=== PATIENT | male | born 1965 | race African-American/Black ===

== ENCOUNTER 2019-02-06 19:03 | Emergency (ER) | payer OTHER, SELFPAY ==
--- OUTSIDE RECORDS SUMMARY | 2019-02-06 19:05 | XMS REPORT ---
:1965 [facility] [address] [place] [address] Care Team Providers Name Role Phone MENG JORGENSEN Unavailable Unavailable CHANDNI JIMENEZ Unavailable Unavailable Payers Payer Name Policy Type Policy Number Effective Date Expiration Date Problems This patient has no known problems. Allergies, Adverse Reactions, Alerts Allergy Allergy Status Severity Reaction(s) Onset Inactive Treating Comments Name Type Date Date Clinician No Known DA Active U 2018-05 Allergies 00:00:0 0 Medications This patient has no known medications. Results Test Description Test Time Test Comments Text Results Atomic Results Result Comments URINALYSIS COMPLETE 2018-12-29 14:34:00 Test Item Value Reference Range Comments UA COLOR (test code=COLU) Dark-Yellow YELLOW UA APPEARANCE (test code=APPU) CLEAR CLEAR UA GLUCOSE DIPSTICK (test code=DGLUU) NEGATIVE mg/dL NEGATIVE UA BILIRUBIN DIPSTICK (test code=BILU) 1.0 (1+) mg/dL NEGATIVE UA KETONE DIPSTICK (test code=KETU) NEGATIVE mg/dL NEGATIVE UA SPECIFIC GRAVITY (test code=SGU) 1.032 1.001-1.035 UA BLOOD DIPSTICK (test code=KARTHIK) 0.03 mg/dL (Trace) mg/dL NEGATIVE UA PH DIPSTICK (test code=TAMIKO) 6.0 5.0-8.0 UA PROTEIN DIPSTICK (test code=PROU) 50 (1+) mg/dL NEGATIVE UA UROBILINIOGEN DIPSTICK (test code=URO) >12.0 (4+) mg/dL NEGATIVE UA NITRITE DIPSTICK (test code=JOHANNA) NEGATIVE NEGATIVE UA LEUKOCYTE ESTERASE W REFLEX (test NEGATIVE Shabana/uL NEGATIVE code=LEUUR) UA WBC (test code=WBCU) 0-5 per HPF 0-5 UA RBC (test code=RBCU) 0-2 #/HPF 0-5 UA EPITHELIAL CELLS (test code=EPIU) FEW per HPF FEW UA BACTERIA (test code=BACU) FEW #/HPF NONE UA MUCUS (test code=MUCU) FEW #/LPF FEW Urine Source? Clean CatchURINALYSIS [id number] 14:30:00 Test Item Value Reference Range Comments UA COLOR (test code=COLU) Dark-Yellow YELLOW UA APPEARANCE (test code=APPU) CLEAR CLEAR UA GLUCOSE DIPSTICK (test NEGATIVE mg/dL NEGATIVE code=DGLUU) UA BILIRUBIN DIPSTICK (test 1.0 (1+) mg/dL NEGATIVE code=BILU) UA KETONE DIPSTICK (test code=KETU) NEGATIVE mg/dL NEGATIVE UA SPECIFIC GRAVITY (test code=SGU) 1.032 1.001-1.035 UA BLOOD DIPSTICK (test code=KARTHIK) 0.03 mg/dL (Trace) mg/dL NEGATIVE UA PH DIPSTICK (test code=TAMIKO) 6.0 5.0-8.0 UA PROTEIN DIPSTICK (test 50 (1+) mg/dL NEGATIVE code=PROU) UA UROBILINIOGEN DIPSTICK (test >12.0 (4+) mg/dL NEGATIVE code=URO) UA NITRITE DIPSTICK (test NEGATIVE NEGATIVE code=JOHANNA) UA LEUKOCYTE ESTERASE W REFLEX NEGATIVE Shabana/uL NEGATIVE (test code=LEUUR) UA WBC (test code=WBCU) per HPF 0-5 UA RBC (test code=RBCU) per HPF 0-5 UA EPITHELIAL CELLS (test per HPF Few code=EPIU) UA BACTERIA (test code=BACU) per HPF NONE Urine Source? Clean CatchLACTIC [id number] 13:18:00 Test Item Value Reference Range Comments LACTIC ACID (test code=LACT) 1.6 mmol/L 0.4-1.9 HEPATIC FUNCTION [id number] 13:18:00 Test Item Value Reference Range Comments TOTAL PROTEIN (test code=PROT) 7.8 gram/dL 6.4-8.2 ALBUMIN (test code=ALB) 2.3 g/dL 3.4-5.0 GLOBULIN (test code=GLOB) 5.5 gram/dL 2.7-4.2 ALBUMIN/GLOBULIN RATIO (test 0.4 0.75-1.50 code=A/G) BILIRUBIN TOTAL (test 1.70 mg/dL 0.0-1.0 code=BILT) BILIRUBIN DIRECT (test 1.23 mg/dL 0.0-0.20 code=BILD) SGOT/AST (test code=AST) 147 IUnit/L 15-37 SGPT/ALT (test code=ALT) 23 IUnit/L 12-78 ALKALINE PHOSPHATASE TOTAL 204 IUnit/L 45-117 Note change in reference (test code=ALKP) range due to change in reagent. CREATINE KINASE (CK)2018-12-29 13:18:00 Test Item Value Reference Range Comments CREATINE KINASE (CK) (test code=CK) 123 IUnit/L 26-208 BASIC METABOLIC [id number] 13:18:00 Test Item Value Reference Range Comments SODIUM (test code=NA) 133 mmol/L 136-145 POTASSIUM (test code=K) 3.7 mmol/L 3.5-5.1 CHLORIDE (test code=CL) 100.0 mmol/L 98-107 CARBON DIOXIDE (test 28.0 mmol/L 21-32 code=CO2) ANION GAP (test code=GAP) 8.7 10-20 GLUCOSE (test code=GLU) 119 mg/dL 74-106 BLOOD UREA NITROGEN (test 10 mg/dL 7-18 code=BUN) GLOMERULAR FILTRATION RATE > 60 mL/min >=60 Estimated GFR by using (test code=GFR) Modified MDRD formula.Chronic kidney disease is defined as either kidney damageor GFR <60 mL/min/1.73 m2 for >3 months. CREATININE (test code=CREAT) 1.10 mg/dL 0.7-1.3 BUN/CREATININE RATIO (test 9.3 10-20 code=BUN/CREA) CALCIUM (test code=CA) 7.9 mg/dL 8.5-10.1 [id number] 13:18:00 Test Item Value Reference Range Comments TROPONIN-I (test code=TROPI) <0.015 ng/mL 0-0.045 BASIC METABOLIC [id number] 13:10:00 Test Item Value Reference Range Comments SODIUM (test code=NA) 133 mmol/L 136-145 POTASSIUM (test code=K) 3.7 mmol/L 3.5-5.1 CHLORIDE (test code=CL) 100.0 mmol/L 98-107 CARBON DIOXIDE (test code=CO2) mmol/L 21-32 ANION GAP (test code=GAP) 10-20 GLUCOSE (test code=GLU) mg/dL 74-106 BLOOD UREA NITROGEN (test code=BUN) mg/dL 7-18 GLOMERULAR FILTRATION RATE (test code=GFR) mL/min >=60 CREATININE (test code=CREAT) mg/dL 0.7-1.3 BUN/CREATININE RATIO (test code=BUN/CREA) 10-20 CALCIUM (test code=CA) 7.9 mg/dL 8.5-10.1 [id number] 13:10:00 Test Item Value Reference Range Comments TROPONIN-I (test code=TROPI) ng/mL 0-0.045 CBC W/O [id number] 13:10:00 Test Item Value Reference Range Comments WHITE BLOOD CELL (test code=WBC) 5.8 K/mm3 4.5-12.5 RED BLOOD CELL (test code=RBC) 2.65 mill/mm3 4.0-5.8 HEMOGLOBIN (test code=HGB) 10.1 gram/dL 13.0-17.5 HEMATOCRIT (test code=HCT) 28.9 % 42.0-52.0 MEAN CELL VOLUME (test code=MCV) 109.1 fL 80-98 MEAN CELL HGB (test code=MCH) 38.1 picogram 27.0-33.0 MEAN CELL HGB CONCETRATION (test code=MCHC) 34.9 gram/dL 33.0-36.0 RED CELL DISTRIBUTION WIDTH (test code=RDW) 13.8 % 11.6-16.2 PLATELET COUNT (test code=PLT) 206 K/mm3 150-450 MEAN PLATELET VOLUME (test code=MPV) 10.3 fL 6.7-11.0 CHEST 2 [id number] 15:40:00 [facility] [address] [address] Patient Name: LYRIC EVANS MR #: [id number] : 1965 Age/Sex: 52/M Req #: [id number] Adm Physician: Ordered by: MENG JORGENSEN MD Report #: [id number] Location: ER Room/Bed: Procedure: [id number] DX/CHEST 2 VIEWS Exam Date: Exam Time: 1507 REPORT STATUS: Signed EXAMINATION: CHEST 2 VIEWS INDICATION: Chest pain cp [id number] 1507 N COMPARISON: 06/12/2018 FINDINGS: TUBES and LINES: None. LUNGS: Lungs are well inflated. Lungs are clear. There is no evidence of pneumonia or pulmonary edema. PLEURA: No pleural effusion or pneumothorax. HEART AND MEDIASTINUM: The cardiomediastinal silhouette is unremarkable. BONES AND SOFT TISSUES: No acute osseous lesion. Soft tissues are unremarkable. UPPER ABDOMEN: No free air under the diaphragm. IMPRESSION: No acute thoracic abnormality. Signed by: Dr. Guy Alford M.D. on 07/10/2018 3:40 PM Dictated By: GUY ALFORD MD, MD 309 Transcribed By: AMY on 07/10/181539 COPY TO: MENG JORGENSEN [facility] W/O [id number] 14:23:00 Test Item Value Reference Range Comments WHITE BLOOD CELL (test code=WBC) 2.3 K/mm3 4.5-12.5 RED BLOOD CELL (test code=RBC) 2.92 mill/mm3 4.0-5.8 HEMOGLOBIN (test code=HGB) 10.8 gram/dL 13.0-17.5 HEMATOCRIT (test code=HCT) 31.0 % 42.0-52.0 MEAN CELL VOLUME (test code=MCV) 106.2 fL 80-98 MEAN CELL HGB (test code=MCH) 37.0 picogram 27.0-33.0 MEAN CELL HGB CONCETRATION (test code=MCHC) 34.8 gram/dL 33.0-36.0 RED CELL DISTRIBUTION WIDTH (test code=RDW) 13.2 % 11.6-16.2 PLATELET COUNT (test code=PLT) 62 K/mm3 150-450 MEAN PLATELET VOLUME (test code=MPV) 11.3 fL 6.7-11.0 WBC [id number] 14:23:00 Test Item Value Reference Range Comments STAIN ACCEPTABILITY (test code=STN STAIN ACCEPTABLE ACCEPTABLE) TOTAL CELLS COUNTED (test code=TCC) 100 #CELLS SEGMENTED NEUTROPHILS (test code=SEG) 51 % 39-69 LYMPHOCYTE (test code=LYMPH) 39 % 25-55 MONOCYTE (test code=MON) 8 % 0-10 EOSINOPHIL (test code=EOS) 1 % 0.0-5.0 BASOPHIL (test code=BASO) 1 % 0-1.0 MORPHOLOGY COMMENT (test code=MOC) NORMAL PLATELET ESTIMATE (test code=PLTEST) DECREASED PLATELET MORPHOLOGY (test code=PLTMORPH) NORMAL - CT HEAD/BRAIN W/O [id number] 14:02:00 Name: LYRIC EVANS [facility] : 1965 Age/S: 52 / M [address] [facility] Unit #: [id number] Loc: [place] [address] Phys: AUNDREA MAHONEY MD Acct: [id number] Dis Date: Status : REG ER PHONE #: [phone] Exam Date: 06/24/2018 1346 FAX #: [phone] Reason: headcahe, HIV EXAMS: CPTCODE: [id number] CT HEAD/BRAIN W/O CONT 80456 HISTORY: headache, HIV TECHNIQUE: Noncontrast 2.[address] of the head. Examination acquired within 24 hours of arrival. Automated exposure control for dose reduction; DLP: 755 mGy-cm. COMPARISON: None FINDINGS: No acute hemorrhage. No CT evidence of acute infarct. No intracranial mass or mass effect. No hydrocephalus. No extra-axial fluid collection. Atherosclerotic vascular calcification of the carotid siphons. Visualized paranasal sinuses are clear. Mastoid air cells and middle ear cavities are clear. Orbital contents are unremarkable. Calvarium and skull base are intact. IMPRESSION: No acute intracranial process. No mass or mass effect. Trace periventricular chronic microvascular ischemic changes. Atherosclerotic vasculardisease. Partially imaged 1.9 cm nodule within the right parapharyngeal fat, possible enlarged node. Correlate with contrast-enhanced neck CT. at 1402 Reported and signed by: Koki Neely D.O. CC: AUNDREA MAHONEY MD Technologist:Stephanie Miller RT (R),CT; CTDI: DLP: Trnscb Date/Time: 06/24/2018 (1402) [email or web address] Orig Print D/T: S: 06/24/2018 (3001) CTDI : DLP: PAGE 1 Signed ReportCBC W/O [id number] 13:39:00 Test Item Value Reference Range Comments WHITE BLOOD CELL (test code=WBC) 2.3 K/mm3 4.5-12.5 RED BLOOD CELL (test code=RBC) 2.92 mill/mm3 4.0-5.8 HEMOGLOBIN (test code=HGB) 10.8 gram/dL 13.0-17.5 HEMATOCRIT (test code=HCT) 31.0 % 42.0-52.0 MEAN CELL VOLUME (test code=MCV) 106.2 fL 80-98 MEAN CELL HGB (test code=MCH) 37.0 picogram 27.0-33.0 MEAN CELL HGB CONCETRATION (test code=MCHC) 34.8 gram/dL 33.0-36.0 RED CELL DISTRIBUTION WIDTH (test code=RDW) 13.2 % 11.6-16.2 PLATELET COUNT (test code=PLT) 62 K/mm3 150-450 MEAN PLATELET VOLUME (test code=MPV) 11.3 fL 6.7-11.0 WBC [id number] 13:39:00 Test Item Value Reference Range Comments STAIN ACCEPTABILITY (test code=STN ACCEPTABLE) TOTAL CELLS COUNTED (test code=TCC) #CELLS SEGMENTED NEUTROPHILS (test code=SEG) % 39-69 LYMPHOCYTE (test code=LYMPH) % 25-55 MONOCYTE (test code=MON) % 0-10 EOSINOPHIL (test code=EOS) % 0.0-5.0 CABOT RINGS (test code=CAB) MORPHOLOGY COMMENT (test code=MOC) PLATELET ESTIMATE (test code=PLTEST) PLATELET MORPHOLOGY (test code=PLTMORPH) CBC W/O [id number] 13:39:00 Test Item Value Reference Range Comments WHITE BLOOD CELL (test code=WBC) 2.3 K/mm3 4.5-12.5 RED BLOOD CELL (test code=RBC) 2.92 mill/mm3 4.0-5.8 HEMOGLOBIN (test code=HGB) 10.8 gram/dL 13.0-17.5 HEMATOCRIT (test code=HCT) 31.0 % 42.0-52.0 MEAN CELL VOLUME (test code=MCV) 106.2 fL 80-98 MEAN CELL HGB (test code=MCH) 37.0 picogram 27.0-33.0 MEAN CELL HGB CONCETRATION (test code=MCHC) 34.8 gram/dL 33.0-36.0 RED CELL DISTRIBUTION WIDTH (test code=RDW) 13.2 % 11.6-16.2 PLATELET COUNT (test code=PLT) 62 K/mm3 150-450 MEAN PLATELET VOLUME (test code=MPV) 11.3 fL 6.7-11.0 WBC [id number] 13:39:00 Test Item Value Reference Range Comments STAIN ACCEPTABILITY (test code=STN ACCEPTABLE) TOTAL CELLS COUNTED (test code=TCC) #CELLS SEGMENTED NEUTROPHILS (test code=SEG) % 39-69 LYMPHOCYTE (test code=LYMPH) % 25-55 MONOCYTE (test code=MON) % 0-10 EOSINOPHIL (test code=EOS) % 0.0-5.0 CABOT RINGS (test code=CAB) MORPHOLOGY COMMENT (test code=MOC) PLATELET ESTIMATE (test code=PLTEST) PLATELET MORPHOLOGY (test code=PLTMORPH) CBC W/O [id number] 13:39:00 Test Item Value Reference Range Comments WHITE BLOOD CELL (test code=WBC) 2.3 K/mm3 4.5-12.5 RED BLOOD CELL (test code=RBC) 2.92 mill/mm3 4.0-5.8 HEMOGLOBIN (test code=HGB) 10.8 gram/dL 13.0-17.5 HEMATOCRIT (test code=HCT) 31.0 % 42.0-52.0 MEAN CELL VOLUME (test code=MCV) 106.2 fL 80-98 MEAN CELL HGB (test code=MCH) 37.0 picogram 27.0-33.0 MEAN CELL HGB CONCETRATION (test code=MCHC) 34.8 gram/dL 33.0-36.0 RED CELL DISTRIBUTION WIDTH (test code=RDW) 13.2 % 11.6-16.2 PLATELET COUNT (test code=PLT) 62 K/mm3 150-450 MEAN PLATELET VOLUME (test code=MPV) 11.3 fL 6.7-11.0 WBC [id number] 13:39:00 Test Item Value Reference Range Comments STAIN ACCEPTABILITY (test code=STN ACCEPTABLE) TOTAL CELLS COUNTED (test code=TCC) #CELLS SEGMENTED NEUTROPHILS (test code=SEG) % 39-69 LYMPHOCYTE (test code=LYMPH) % 25-55 MONOCYTE (test code=MON) % 0-10 EOSINOPHIL (test code=EOS) % 0.0-5.0 MORPHOLOGY COMMENT (test code=MOC) PLATELET ESTIMATE (test code=PLTEST) PLATELET MORPHOLOGY (test code=PLTMORPH) CBC W/O [id number] 13:39:00 Test Item Value Reference Range Comments WHITE BLOOD CELL (test code=WBC) 2.3 K/mm3 4.5-12.5 RED BLOOD CELL (test code=RBC) 2.92 mill/mm3 4.0-5.8 HEMOGLOBIN (test code=HGB) 10.8 gram/dL 13.0-17.5 HEMATOCRIT (test code=HCT) 31.0 % 42.0-52.0 MEAN CELL VOLUME (test code=MCV) 106.2 fL 80-98 MEAN CELL HGB (test code=MCH) 37.0 picogram 27.0-33.0 MEAN CELL HGB CONCETRATION (test code=MCHC) 34.8 gram/dL 33.0-36.0 RED CELL DISTRIBUTION WIDTH (test code=RDW) 13.2 % 11.6-16.2 PLATELET COUNT (test code=PLT) 62 K/mm3 150-450 MEAN PLATELET VOLUME (test code=MPV) 11.3 fL 6.7-11.0 WBC [id number] 13:39:00 Test Item Value Reference Range Comments STAIN ACCEPTABILITY (test code=STN ACCEPTABLE) TOTAL CELLS COUNTED (test code=TCC) #CELLS SEGMENTED NEUTROPHILS (test code=SEG) % 39-69 LYMPHOCYTE (test code=LYMPH) % 25-55 MONOCYTE (test code=MON) % 0-10 MORPHOLOGY COMMENT (test code=MOC) PLATELET ESTIMATE (test code=PLTEST) PLATELET MORPHOLOGY (test code=PLTMORPH) PROTHROMBIN [id number] 13:24:00 Test Item Value Reference Range Comments PROTHROMBIN TIME PATIENT 14.9 seconds 9.0-14.0 (test code=PTP) INTERNATIONAL NORMAL RATIO 1.3 0.8-1.2 The therapeutic range for (test code=INR) oral anticoagulant therapy formost indications is an international normalized ratio (INR)of between 2.0 and 3.0. The recommended therapeutic INRrange for various clinical situations is listed below: Clinical Situation INR range ____ Pulmonary embolism treatment (2.0-3.0)Venous thrombosis treatmentVenous thrombosis prophylaxis (high risk surgery)Prevention of systemic embolism from: Acute myocardial infarction Valvular heart disease Atrial fibrillation Mechanical prosthetic heart valves (2.5-3.5) IS PATIENT ON ANTICOAGULANTS? NTHROMBOPLASTIN TIME [id number] 13:24:00 Test Item Value Reference Range Comments THROMBOPLASTIN TIME PARTIAL (test code=PTT) 34.9 seconds 25.0-36.5 IS PATIENT ON ANTICOAGULANTS? NBASIC METABOLIC [id number] 13:18:00 Test Item Value Reference Range Comments SODIUM (test code=NA) 137 mmol/L 136-145 POTASSIUM (test code=K) 3.8 mmol/L 3.5-5.1 CHLORIDE (test code=CL) 105.0 mmol/L 98-107 CARBON DIOXIDE (test 25.0 mmol/L 21-32 code=CO2) ANION GAP (test code=GAP) 10.8 10-20 GLUCOSE (test code=GLU) 110 mg/dL 74-106 BLOOD UREA NITROGEN (test 11 mg/dL 7-18 code=BUN) GLOMERULAR FILTRATION RATE > 60 mL/min >=60 Estimated GFR by using (test code=GFR) Modified MDRD formula.Chronic kidney disease is defined as either kidney damageor GFR <60 mL/min/1.73 m2 for >3 months. CREATININE (test code=CREAT) 1.00 mg/dL 0.7-1.3 BUN/CREATININE RATIO (test 11.0 10-20 code=BUN/CREA) CALCIUM (test code=CA) 8.0 mg/dL 8.5-10.1 [id number] 13:18:00 Test Item Value Reference Range Comments TROPONIN-I (test code=TROPI) <0.015 ng/mL 0-0.045 - XR CHEST 1 [id number] 12:52:00 FAX: AUNDREA MAHONEY MD [place]: St: REG Name: LYRIC EVANS [facility] : 1965 Age/S: 52/M [address] [facility] Unit#: [id number] Loc: [place] [address] Phys: AUNDREA MAHONEY MD Acct: [id number] Dis Date: Status: REG ER PHONE #: [phone] Exam Date: 06/24/2018 1234 FAX #: [phone] Reason: CHEST PAIN EXAMS: CPT CODE: [id number] XR CHEST 1 V 56035 HISTORY: CHEST PAIN TECHNIQUE: AP chest x-ray COMPARISON: None FINDINGS: No airspace consolidation or pleural effusion. Normal heart size. Mediastinal silhouette is unremarkable. Visualized osseous structures are grossly intact. IMPRESSION: No radiographic evidence of acute cardiopulmonary process. at 1252 Reported and signed by: Koki Neely D.O. CC: AUNDREA MAHONEY MD Technologist: Edilson BABIN) Trnscrd Date/Time/By: 06/24/2018 (4697) : By: [email or web address] Orig Print D /T: S: 06/24/2018 (5441) PAGE 1 Signed ReportTROPONIN I [id number] 12:45:00 Test Item Value Reference Range Comments TROPONIN I RAPID (test 0.01 ng/mL <0.08 Please Note New Reference code=TROPIRAP) Range 0.00-0.079 ng/mL - Negative>or=0.08 ng/mL - Positive The use of serial sampling and testing protocol is arecommended practice.An elevated troponin level alone is often not sufficient fordiagnosis of myocardial infarction. Troponin results obtained by different assays may vary.Evaluation of the extent of myocardial damage based onincrease of troponin would be valid only if similarmethodology is used. CBC W/O [id number] 12:39:00 Test Item Value Reference Range Comments WHITE BLOOD CELL (test code=WBC) 2.3 K/mm3 4.5-12.5 RED BLOOD CELL (test code=RBC) 2.92 mill/mm3 4.0-5.8 HEMOGLOBIN (test code=HGB) 10.8 gram/dL 13.0-17.5 HEMATOCRIT (test code=HCT) 31.0 % 42.0-52.0 MEAN CELL VOLUME (test code=MCV) 106.2 fL 80-98 MEAN CELL HGB (test code=MCH) 37.0 picogram 27.0-33.0 MEAN CELL HGB CONCETRATION (test code=MCHC) 34.8 gram/dL 33.0-36.0 RED CELL DISTRIBUTION WIDTH (test code=RDW) 13.2 % 11.6-16.2 PLATELET COUNT (test code=PLT) 62 K/mm3 150-450 MEAN PLATELET VOLUME (test code=MPV) 11.3 fL 6.7-11.0 CXR 2 VIEW - [id number] 18:57:[address] [address] Patient Name: LYRIC EVANS MR #: [id number] : 1965 Age/Sex: 52/M Req #: [id number] Adm Physician: Ordered by: CHANDNI JIMENEZ MD Report #: [id number] Location:[facility] Room/Bed: Procedure: [id number] HOPD/CXR 2 VIEW - HOPD Exam Date: 06/12/18 Exam Time: 1809 REPORT STATUS: Signed Frontal and lateral views of the chest. HISTORY: Productive cough COMPARISON: None available. DISCUSSION: Lungs: Mild prominence of the central bronchial interstitial markings. No evidence of a consolidative pneumonia or pulmonary alveolar edema. Pleura: No pleural effusion or pneumothorax. Heart and mediastinum: The cardiomediastinal silhouette appears unremarkable. Bones and soft tissues: Appear unremarkable. IMPRESSION: 1. Findings which can be seen in the setting of a nonspecific bronchitis. 2. No consolidative pneumonia. Signed by: Kay MontoyaOEverardo, M.M.M. on 2018 6:58 PM Dictated By: MARKEL RYAN DO 55 Transcribed By: AMY on 06/12/181857 COPY TO: CHANDNI JIMENEZ MD
--- OUTSIDE RECORDS SUMMARY | 2019-02-06 19:05 | XMS REPORT | Continuity of Care Document ---
:[address] [facility] Address [address] [place] [address] Phone Unavailable Care Team Providers Name Role Phone NO, PCP Primary Care Physician Unavailable Advance Directives Directive Response Recorded Date/Time Does the patient have an advance directive? Yes 06/12/18 6:48pm If yes, is advance directive on file with [facility]? No 06/12/18 6:48pm If not on file with [facility] will patient provide a copy? No 06/12/18 6:48pm Do you have a Directive to Physician? No 07/10/18 3:57pm Do you have a Medical Power of Underground Distribution Engineer? No 07/10/18 3:57pm Do you have an out of hospital Do Not Resuscitate Order? No 07/10/18 3:57pm Do you have any special needs we should be aware of? No 07/10/18 3:57pm Do you have a support person here with you today? No 07/10/18 3:57pm Did patient receive Notice of Privacy Practices? Yes 07/10/18 3:57pm Did patient receive patient rights and responsibilities? Yes 07/10/18 3:57pm Problems No problem information available. Medications Current Home Medications Medication Dose Units Route Directions Days Qty Instructions Start Date Albuterol 2 Inh Oral Four Times 1 Inhaler 06/12/18 Sulfate Daily as (Ventolin Hfa) needed for 18 Gm Cough Hfa.aer.ad D-Methorphan 5 Ml Oral Four Times 5 Days 120 06/12/18 Hb/P-Epd Daily as Milliliter Hcl/Bpm needed for (Bromfed Dm Cough Cough Syrup) 118 Ml Syrup Doxycycline 100 Mg Oral Twice A Day 10 Days 20 06/12/18 Hyclate 100 Mg Capsule Past Home Medications Medication Directions Ordered Status Sulfamethoxazole/Trimethoprim (Bactrim Ds Tablet) 1 Twice A Day 06/12/18 Discontinued Each Tablet, 1 Each Oral Social History Smoking Status Start Date Stop Date Former smoker Hospital Discharge Instructions No hospital discharge instruction information available. Plan of Care Discharge Date 07/10/18 5:26pm Disposition HOME, SELF-CARE Condition at Discharge Stable Instructions/Education Provided Chest Pain - Noncardiac Forms Provided Work/School Excuse Prescriptions See Medication Section Referrals MERLIN CALVIN MD Address: [address] [place] [address] [id number] Additional Instructions/Education TAKE MEDICATION PRESCRIBED. FOLLOW UP WITH PRIMARY CARE DOCTOR. Functional Status No functional status information available. Allergies, Adverse Reactions, Alerts No known allergies. Immunizations No immunization information available. Vital Signs Acute Vital Signs Vital Response Date/Time Height 5 ft 5 in 07/10/2018 2:07pm Weight 164 lb 07/10/2018 2:07pm Body Mass Index 27.3 kg/m^2 07/10/2018 2:07pm Results Laboratory Results Test Name Result Units Flags Reference Collection Result Comments Date/Time Date/Time White Blood Count 2.23 x10e3/uL L 4.8-10.8 07/10/2018 07/10/2018 2:18pm 3:15pm Red Blood Count 2.87 x10e6/uL L 4.3-5.7 07/10/2018 07/10/2018 2:18pm 3:15pm Hemoglobin 10.8 g/dL L 14.0-18.0 07/10/2018 07/10/2018 2:18pm 3:15pm Hematocrit 30.2 % L 38.2-49.6 07/10/2018 07/10/2018 2:18pm 3:15pm Mean Corpuscular 105.2 fL H 81-99 07/10/2018 07/10/2018 Volume 2:18pm 3:15pm Mean Corpuscular 37.6 pg H 28-32 07/10/2018 07/10/2018 Hemoglobin 2:18pm 3:15pm Mean Corpuscular 35.8 g/dL H 31-35 07/10/2018 07/10/2018 Hemoglobin Concent 2:18pm 3:15pm Red Cell 15.7 % H 11.7-14.4 07/10/2018 07/10/2018 Distribution Width 2:18pm 3:15pm Platelet Count 70 x10e3/uL L 140-360 07/10/2018 07/10/2018 NO CLOT 2:18pm 3:15pm DETECTED Neutrophils (%) 45.4 % 38.7-80.0 07/10/2018 07/10/2018 (Auto) 2:18pm 3:15pm Lymphocytes (%) 36.3 % 18.0-39.1 07/10/2018 07/10/2018 (Auto) 2:18pm 3:15pm Monocytes (%) 15.2 % H 4.4-11.3 07/10/2018 07/10/2018 (Auto) 2:18pm 3:15pm Eosinophils (%) 2.7 % 0.0-6.0 07/10/2018 07/10/2018 (Auto) 2:18pm 3:15pm Basophils (%) 0.4 % 0.0-1.0 07/10/2018 07/10/2018 (Auto) 2:18pm 3:15pm IM GRANULOCYTES % 0.0 % 0.0-1.0 07/10/2018 07/10/2018 2:18pm 3:15pm Neutrophils # 1.0 L 2.1-6.9 07/10/2018 07/10/2018 (Auto) 2:18pm 3:15pm Lymphocytes # 0.8 L 1.0-3.2 07/10/2018 07/10/2018 (Auto) 2:18pm 3:15pm Monocytes # (Auto) 0.3 0.2-0.8 07/10/2018 07/10/2018 2:18pm 3:15pm Eosinophils # 0.1 0.0-0.4 07/10/2018 07/10/2018 (Auto) 2:18pm 3:15pm Basophils # (Auto) 0.0 0.0-0.1 07/10/2018 07/10/2018 2:18pm 3:15pm Absolute Immature 0 x10e3/uL 0-0.1 07/10/2018 07/10/2018 Granulocyte (auto 2:18pm 3:15pm Prothrombin Time 14.8 seconds H 11.9-14.5 07/10/2018 07/10/2018 2:18pm 3:24pm Prothromb Time 1.11 07/10/2018 07/10/2018 Oral Anticoagulant Therapy INR Values: International 2:18pm 3:24pm 1. Low Intensity Therapy 1.5 - 2.0 Ratio 2. Moderate Intensity Therapy 2.0 - 3.0 3. High Intensity Therapy(1) 2.5 - 3.5 4. High Intensity Therapy(2) 3.0 - 4.0 5. Panic Value INR > 5.0 Activated Partial 34.0 seconds 23.8-35.5 07/10/2018 07/10/2018 Thromboplast Time 2:18pm 3:24pm Sodium Level 135 mmol/L L 136-145 07/10/2018 07/10/2018 2:18pm 3:24pm Potassium Level 3.4 mmol/L L 3.5-5.1 07/10/2018 07/10/2018 2:18pm 3:24pm Chloride Level 107 mmol/L 98-107 07/10/2018 07/10/2018 2:18pm 3:24pm Carbon Dioxide 23 mmol/L 22-29 07/10/2018 07/10/2018 Level 2:18pm 3:24pm Anion Gap 8.4 mmol/L 8-16 07/10/2018 07/10/2018 2:18pm 3:24pm Blood Urea 9 mg/dL 7-26 07/10/2018 07/10/2018 Nitrogen 2:18pm 3:24pm Creatinine 0.91 mg/dL 0.72-1.25 07/10/2018 07/10/2018 2:18pm 3:24pm BUN/Creatinine 10 6-25 07/10/2018 07/10/2018 Ratio 2:18pm 3:24pm Estimat Glomerular > 60 ML/MIN 60- 07/10/2018 07/10/2018 Ranges were taken from the National Kidney Disease Education Filtration Rate 2:18pm 3:24pm Program and the National [employer] literature. Reference ranges: 60 or greater: Normal 16-59 (for 3 consecutive months): Chronic kidney disease 15 or less: Kidney failure Glucose Level 87 mg/dL 74-118 07/10/2018 07/10/2018 2:18pm 3:24pm Calcium Level 7.9 mg/dL L 8.4-10.2 07/10/2018 07/10/2018 2:18pm 3:24pm Total Bilirubin 1.4 mg/dL H 0.2-1.2 07/10/2018 07/10/2018 2:18pm 3:24pm Aspartate Amino 129 IU/L H 5-34 07/10/2018 07/10/2018 Transf (AST/SGOT) 2:18pm 3:24pm Alanine 55 IU/L 0-55 07/10/2018 07/10/2018 Aminotransferase 2:18pm 3:24pm (ALT/SGPT) Total Protein 8.0 g/dL 6.5-8.1 07/10/2018 07/10/2018 2:18pm 3:24pm Albumin 2.2 g/dL L 3.5-5.0 07/10/2018 07/10/2018 2:18pm 3:24pm Globulin 5.8 g/dL H 2.3-3.5 07/10/2018 07/10/2018 2:18pm 3:24pm Albumin/Globulin 0.4 L 0.8-2.0 07/10/2018 07/10/2018 Ratio 2:18pm 3:24pm Alkaline 200 IU/L H 40-150 07/10/2018 07/10/2018 Phosphatase 2:18pm 3:24pm Creatine Kinase 176 IU/L 30-200 07/10/2018 07/10/2018 2:18pm 3:24pm Creatine Kinase MB 2.80 ng/mL 0-5.0 07/10/2018 07/10/2018 2:18pm 3:32pm Troponin I 0.002 ng/mL 0-0.300 07/10/2018 07/10/2018 2:18pm 3:32pm Procedures Procedure Status Date Provider(s) X-ray of chest, two views Completed 07/10/18 MENG JORGENSEN MD Encounters Encounter Location Arrival/Admit Date Discharge/Depart Date Attending Provider Departed [facility] 07/10/18 1:52pm 07/10/18 5:26pm MENG JORGENSEN Emergency Room Patients Kristopher De Paz MD Center Departed [facility] 06/12/18 5:55pm 06/12/18 7:06pm [facility], Emergency Room Patients Kristopher Alvarado
[2019-02-06] MEDS ORDERED: PANTOPRAZOLE 40 MG INJ ONE (20:04)
[2019-02-06] MEDS ORDERED: FENTANYL CITR 100 MCG/2 ML ONE (20:04)
[2019-02-06] MEDS ORDERED: ONDANSETRON 4 MG/2 ML VIAL ONE (20:04)
[2019-02-06 20:30] LABS: Absolute Lymphocytes (CBC) 0.8 K/uL (0.7-4.9); Basophils % 0.8 % (0-1.3); Hematocrit 23.5 % (39.6-49.0); Lymphocytes % 8.7 % (15.3-44.8); MPV 9.5 fL (7.6-11.3)
[2019-02-06 20:31] LABS: Protime INR 2.69
[2019-02-06 20:46] LABS: ALT/SGPT 44 U/L (12-78); Albumin 1.6 g/dL (3.4-5.0); Alkaline Phosphatase 226 U/L (45-117); BUN Blood Urea Nitrogen 24 mg/dL (7-18); Bicarbonate 20 mmol/L (21-32); Bilirubin Direct 1.9 mg/dL (0-0.2); Bilirubin Total 2.5 mg/dL (0.2-1.0); Glucose Level 120 mg/dL (74-106); Lipase 417 U/L (73-393); Magnesium 2.4 mg/dL (1.8-2.4); NT PRO-BNP 249 pg/mL (<125); Potassium 4.9 mmol/L (3.5-5.1); Protein, Total 7.6 g/dL (6.4-8.2); Sodium Level 133 mmol/L (136-145); Troponin (Emerg Dept Use Only) < 0.02 ng/mL (0.0-0.045)
[2019-02-06 20:49] LABS: AST/SGOT 674 U/L (15-37)
--- NOTE | 2019-02-06 21:07 | RAD REPORT ---
EXAM DESCRIPTION: Jessica Single View02/06/2019 8:24 pm CLINICAL HISTORY: Abdominal pain COMPARISON: none FINDINGS: The lungs appear clear of acute infiltrate. The heart is normal size Mild elevation right hemidiaphragm
--- NOTE | 2019-02-06 21:26 | ER ---
Nurse's Notes [facility] Name: Anoop De Leon Age: 53 yrs Sex: Male : 1965 Arrival Date: 02/06/2019 Time: 19:09 Bed 30 Private MD: Diagnosis: Abdominal tenderness;Unspecified cirrhosis of liver;Anemia, unspecified;Coagulation defect, unspecified-on eliquis;Unspecified kidney failure;Human immunodeficiency virus [HIV] disease Presentation: 02/06 19:12 Presenting complaint: EMS states: Pt was discharged from [facility] in [place] today and is tr5 having severe abdominal pain. Pt has Cirrohsis and was last tapped on Monday in which they took out 3L. Transition of care: patient was not received from another setting of care. Onset of symptoms was February 06, 2019. Risk Assessment: Do you want to hurt yourself or someone else? Patient reports no desire to harm self or others. Initial Sepsis Screen: Does the patient meet any 2 criteria? No. Patient's initial sepsis screen is negative. Does the patient have a suspected source of infection? No. Patient's initial sepsis screen is negative. Care prior to arrival: None. 19:12 Method Of Arrival: EMS tr5 19:12 Acuity: KRISTA 3 tr5 Historical: - Allergies: 19:25 No Known Allergies; tr5 - Home Meds: 19:25 acetaminophen-codeine 300 mg-30 mg /12.5 mL Oral soln [Active]; apixaban oral 5 mg oral tr5 2 times per day [Active]; azithromycin 500 mg Oral tab [Active]; benzonatate 100 mg oral cap [Active]; biktarvy 50-200-25 mg [Active]; Constulose 10 gram/15 mL oral soln [Active]; entecavir 0.5 mg oral tab [Active]; furosemide 20 mg Oral tab [Active]; pantoprazole 40 mg oral TbEC [Active]; polyethylene glycol 3350 17 gram/dose oral powd [Active]; sennosides-docusate sodium 8.6-50 mg oral tab [Active]; spironolactone 50 mg Oral tab [Active]; - PMHx: 19:25 Hypertension; Hepatitis; liver masses; macrocytic anemia; acute biliary pancreatitis; tr5 Leukemia; anemia of chronic disease; thrombocytopenia; HIV; - Immunization history:: Adult Immunizations up to date. - Social history:: Smoking status: unknown. - Ebola Screening: : No symptoms or risks identified at this time. - Family history:: not pertinent. Screenin:27 Abuse screen: Denies threats or abuse. Nutritional screening: No deficits noted. tr5 Tuberculosis screening: No symptoms or risk factors identified. Fall Risk None identified. Assessment: 19:27 General: Appears uncomfortable, Behavior is calm, cooperative, appropriate for age. tr5 Pain: Complains of pain in abdomen. Neuro: Level of Consciousness is awake, alert, obeys commands, Oriented to person, place, time, Pattern Marking Supervisor are equal bilaterally Moves all extremities. Gait is steady. Cardiovascular: Heart tones present Capillary refill < 3 seconds Pulses are all present. Edema Ascites. Respiratory: Airway is patent Respiratory effort is even, unlabored, Respiratory pattern is regular, symmetrical. GI: Bowel sounds diminished in right upper quadrant, left upper quadrant, right lower quadrant and left lower quadrant Abd is rigid Guarding noted X 4 quads. GI: Reports bloating. : No signs and/or symptoms were reported regarding the genitourinary system. EENT: No signs and/or symptoms were reported regarding the EENT system. Derm: No signs and/or symptoms reported regarding the dermatologic system. Musculoskeletal: No signs and/or symptoms reported regarding the musculoskeletal system. 20:30 Reassessment: Patient appears in no apparent distress at this time. Patient and/or tr5 family updated on plan of care and expected duration. Pain level reassessed. Patient is alert, oriented x 3, equal unlabored respirations, skin warm/dry/pink. 21:30 Reassessment: Patient appears in no apparent distress at this time. No changes from tr5 previously documented assessment. Patient and/or family updated on plan of care and expected duration. Pain level reassessed. 22:30 Reassessment: Patient appears in no apparent distress at this time. Patient and/or tr5 family updated on plan of care and expected duration. Pain level reassessed. Patient is alert, oriented x 3, equal unlabored respirations, skin warm/dry/pink. 23:30 Reassessment: Patient is alert, oriented x 3, equal unlabored respirations, skin tr5 warm/dry/pink. Pt appears to be laying in bed resting. 02/07 00:30 Reassessment: Patient appears in no apparent distress at this time. Patient and/or tr5 family updated on plan of care and expected duration. Pain level reassessed. Patient is alert, oriented x 3, equal unlabored respirations, skin warm/dry/pink. Vital Signs: 02/06 19:25 BP 113 / 79; Pulse 81; Resp 17; Temp 97.7(O); Pulse Ox 99% on R/A; Weight 74.39 kg; tr5 Height 5 ft. 5 in. (165.10 cm); Pain 10/10; 21:00 BP 97 / 78; Pulse 82; Resp 16; Pulse Ox 100% on R/A; tr5 22:00 BP 111 / 75; Pulse 87; Resp 16; Pulse Ox 100% on R/A; tr5 23:00 BP 111 / 75; Pulse 85; Resp 17; Pulse Ox 100% on R/A; tr5 02/07 00:00 BP 105 / 73; Pulse 81; Resp 16; Pulse Ox 99% on R/A; tr5 02/06 19:25 Body Mass Index 27.29 (74.39 kg, 165.10 cm) tr5 ED Course: 02/06 19:09 Patient arrived in ED. tr5 19:15 Triage completed. tr5 19:17 Immanuel Sy MD is Attending Physician. ana 19:25 Arm band placed on. tr5 19:27 Zach Tse, RN is Primary Nurse. tr5 19:27 Placed in gown. Bed in low position. Call light in reach. Side rails up X 1. tr5 19:27 Initial lab(s) drawn, by me, sent to lab. Inserted saline lock: 20 gauge in right tr5 antecubital area, using aseptic technique. 19:58 Radiology exam delayed due to lab results not completed at this time. (BUN/Creatinine). jj2 20:24 XRAY Chest (1 view) In Process Unspecified. EDMS 20:35 Radiology exam delayed due to lab results not completed at this time. (BUN/Creatinine). jj2 20:48 Notified ED physician of a critical lab result(s). AST 674. fc 21:[address] nj 21:21 Paul Rocha is Hospitalizing Provider. ana 21:22 Abdomen In Process Unspecified. EDMS 02/07 02:02 No provider procedures requiring assistance completed. Patient transferred, IV remains tr5 in place. Administered Medications: 02/06 20:24 Drug: Zofran 4 mg Route: IVP; Site: right antecubital; tr5 22:33 Follow up: Response: Nausea is decreased tr5 20:24 Drug: ProTONIX 40 mg Route: IVP; Site: right antecubital; tr5 22:33 Follow up: Response: Marked relief of symptoms tr5 20:25 Drug: fentaNYL (PF) 25 mcg {Note: RASS:0.} Route: IVP; Site: right antecubital; tr5 21:00 Follow up: Response: Pain is decreased; RASS: Alert and Calm (0) tr5 21:21 Drug: fentaNYL (PF) 25 mcg {Note: RASS:0.} Route: IVP; Site: right antecubital; tr5 22:10 Follow up: Response: Pain is decreased; RASS: Alert and Calm (0) tr5 22:58 Drug: Rocephin 1 grams Route: IV; Rate: per protocol; Site: right antecubital; tr5 23:50 Follow up: IV Status: Completed infusion; IV Intake: 50ml tr5 22:59 Drug: fentaNYL (PF) 25 mcg {Note: RASS:0.} Route: IVP; Site: right antecubital; tr5 23:50 Follow up: Response: Pain is decreased; RASS: Alert and Calm (0) tr5 02/07 01:01 Drug: fentaNYL (PF) 25 mcg {Note: RASS:0.} Route: IVP; Site: right antecubital; tr5 02:01 Follow up: Response: Pain is decreased; RASS: Alert and Calm (0) tr5 Intake: 02/06 23:50 IV: 50ml; Total: 50ml. tr5 Outcome: 21:25 Decision to Hospitalize by Provider. [facility] 22:32 ER care complete, transfer ordered by . [facility] 02/07 02:02 Transferred by ground EMS to [facility], Transfer form tr5 completed. X-rays sent w/ patient. Condition: stable Instructed on the need for transfer. 02:04 Patient left the ED. tr5 Signatures: Dispatcher [employer] EDMN Immanuel Sy MD MD cha Jaramillo, Justin jj2 Chretien, Antonette, RN RN fc Miguel Wagner Tommie RN RN tr5
--- NOTE | 2019-02-06 21:26 | EDPHYS ---
Physician Documentation [facility] Name: Anoop De Leon Age: 53 yrs Sex: Male : 1965 Arrival Date: 02/06/2019 Time: 19:09 Bed 30 Private MD: ED Physician Immanuel Sy HPI: 02/06 19:57 This 53 yrs old Black Male presents to ER via EMS with complaints of Abdominal Pain. ana 19:57 The patient presents with abdominal pain in the upper abdomen, in the lower abdomen, ana abdominal distention in the upper abdomen, in the lower abdomen. Onset: The symptoms/episode began/occurred 7 day(s) ago. cirrhosis. Onset: The symptoms/episode began/occurred 7 day(s) ago. The symptoms do not radiate. Associated signs and symptoms: none. Severity of pain: At its worst the pain was moderate in the emergency department the pain is unchanged. Historical: - Allergies: 19:25 No Known Allergies; tr5 - Home Meds: 19:25 acetaminophen-codeine 300 mg-30 mg /12.5 mL Oral soln [Active]; apixaban oral 5 mg oral tr5 2 times per day [Active]; azithromycin 500 mg Oral tab [Active]; benzonatate 100 mg oral cap [Active]; biktarvy 50-200-25 mg [Active]; Constulose 10 gram/15 mL oral soln [Active]; entecavir 0.5 mg oral tab [Active]; furosemide 20 mg Oral tab [Active]; pantoprazole 40 mg oral TbEC [Active]; polyethylene glycol 3350 17 gram/dose oral powd [Active]; sennosides-docusate sodium 8.6-50 mg oral tab [Active]; spironolactone 50 mg Oral tab [Active]; - PMHx: 19:25 Hypertension; Hepatitis; liver masses; macrocytic anemia; acute biliary pancreatitis; tr5 Leukemia; anemia of chronic disease; thrombocytopenia; HIV; - Immunization history:: Adult Immunizations up to date. - Social history:: Smoking status: unknown. - Ebola Screening: : No symptoms or risks identified at this time. - Family history:: not pertinent. ROS: 19:57 Constitutional: Negative for fever, chills, and weight loss, Eyes: Negative for injury, ana pain, redness, and discharge, ENT: Negative for injury, pain, and discharge, Neck: Negative for injury, pain, and swelling, Cardiovascular: Negative for chest pain, palpitations, and edema, Respiratory: Negative for shortness of breath, cough, wheezing, and pleuritic chest pain, Back: Negative for injury and pain, : Negative for injury, bleeding, discharge, and swelling, MS/Extremity: Negative for injury and deformity, Neuro: Negative for headache, weakness, numbness, tingling, and seizure, Psych: Negative for depression, anxiety, suicide ideation, homicidal ideation, and hallucinations, Allergy/Immunology: Negative for hives, rash, and allergies, Endocrine: Negative for neck swelling, polydipsia, polyuria, polyphagia, and marked weight changes, Hematologic/Lymphatic: Negative for swollen nodes, abnormal bleeding, and unusual bruising. 19:57 Abdomen/GI: Positive for abdominal pain, abdominal distension. 19:57 Skin: Positive for pallor. Exam: 19:57 Constitutional: This is a well developed, well nourished patient who is awake, alert, ana and in no acute distress. Head/Face: Normocephalic, atraumatic. Eyes: Pupils equal round and reactive to light, extra-ocular motions intact. Lids and lashes normal. Conjunctiva and sclera are non-icteric and not injected. Cornea within normal limits. Periorbital areas with no swelling, redness, or edema. ENT: Nares patent. No nasal discharge, no septal abnormalities noted. Tympanic membranes are normal and external auditory canals are clear. Oropharynx with no redness, swelling, or masses, exudates, or evidence of obstruction, uvula midline. Mucous membranes moist. Neck: Trachea midline, no thyromegaly or masses palpated, and no cervical lymphadenopathy. Supple, full range of motion without nuchal rigidity, or vertebral point tenderness. No Meningismus. Chest/axilla: Normal chest wall appearance and motion. Nontender with no deformity. No lesions are appreciated. Cardiovascular: Regular rate and rhythm with a normal S1 and S2. No gallops, murmurs, or rubs. Normal PMI, no JVD. No pulse deficits. Respiratory: Lungs have equal breath sounds bilaterally, clear to auscultation and percussion. No rales, rhonchi or wheezes noted. No increased work of breathing, no retractions or nasal flaring. Male : Normal genitalia with no discharge or lesions. Skin: Warm, dry with normal turgor. Normal color with no rashes, no lesions, and no evidence of cellulitis. Neuro: Awake and alert, GCS 15, oriented to person, place, time, and situation. Cranial nerves II-XII grossly intact. Motor strength 5/5 in all extremities. Sensory grossly intact. Cerebellar exam normal. Normal gait. Psych: Awake, alert, with orientation to person, place and time. Behavior, mood, and affect are within normal limits. 19:57 Abdomen/GI: Inspection: distension, Bowel sounds: normal, Palpation: mild abdominal tenderness, in all quadrants, Liver: no appreciated palpable abnormalities, Hernia: not appreciated. Vital Signs: 19:25 BP 113 / 79; Pulse 81; Resp 17; Temp 97.7(O); Pulse Ox 99% on R/A; Weight 74.39 kg; tr5 Height 5 ft. 5 in. (165.10 cm); Pain 10/10; 21:00 BP 97 / 78; Pulse 82; Resp 16; Pulse Ox 100% on R/A; tr5 22:00 BP 111 / 75; Pulse 87; Resp 16; Pulse Ox 100% on R/A; tr5 23:00 BP 111 / 75; Pulse 85; Resp 17; Pulse Ox 100% on R/A; 5 02/07 00:00 BP 105 / 73; Pulse 81; Resp 16; Pulse Ox 99% on R/A; 5 02/06 19:25 Body Mass Index 27.29 (74.39 kg, 165.10 cm) [facility] MDM: 02/06 19:17 Patient medically screened. [facility] 19:57 Data reviewed: vital signs, nurses notes, lab test result(s), EKG, radiologic studies, [facility] CT scan, plain films. 02/06 19:56 Order name: Basic Metabolic Panel; Complete Time: 21:19 [facility] 02/06 19:56 Order name: CBC with Diff [facility] 02/06 19:56 Order name: LFT's; Complete Time: 21:19 [facility] 02/06 19:56 Order name: Magnesium; Complete Time: 21:19 [facility] 02/06 19:56 Order name: NT PRO-BNP; Complete Time: 21:19 [facility] 02/06 19:56 Order name: PT-INR; Complete Time: 21:19 [facility] 02/06 19:56 Order name: Troponin (emerg Dept Use Only); Complete Time: 21:19 [facility] 02/06 19:56 Order name: XRAY Chest (1 view); Complete Time: 21:19 [facility] 02/06 19:56 Order name: Lipase; Complete Time: 21:19 [facility] 02/06 19:56 Order name: Type And Screen; Complete Time: 21:19 [facility] 02/06 19:56 Order name: AMMONIA; Complete Time: 21:19 [facility] 02/06 20:56 Order name: Abdomen [facility] 02/06 21:10 Order name: CBC Smear Scan [facility] 02/06 19:56 Order name: EKG; Complete Time: 19:57 [facility] 02/06 19:56 Order name: Cardiac monitoring; Complete Time: 20:01 [facility] 02/06 19:56 Order name: EKG - Nurse/Tech; Complete Time: 23:51 [facility] 02/06 19:56 Order name: IV Saline Lock; Complete Time: 20:01 [facility] 02/06 19:56 Order name: Labs collected and sent; Complete Time: 20: [facility] 02/06 19:56 Order name: O2 Per Protocol; Complete Time: 20: [facility] 02/06 19:56 Order name: O2 Sat Monitoring; Complete Time: 19:59 [facility] Administered Medications: 20:24 Drug: Zofran 4 mg Route: IVP; Site: right antecubital; tr5 22:33 Follow up: Response: Nausea is decreased tr5 20:24 Drug: ProTONIX 40 mg Route: IVP; Site: right antecubital; tr5 22:33 Follow up: Response: Marked relief of symptoms tr5 20:25 Drug: fentaNYL (PF) 25 mcg {Note: RASS:0.} Route: IVP; Site: right antecubital; tr5 21:00 Follow up: Response: Pain is decreased; RASS: Alert and Calm (0) tr5 21:21 Drug: fentaNYL (PF) 25 mcg {Note: RASS:0.} Route: IVP; Site: right antecubital; tr5 22:10 Follow up: Response: Pain is decreased; RASS: Alert and Calm (0) tr5 22:58 Drug: Rocephin 1 grams Route: IV; Rate: per protocol; Site: right antecubital; tr5 23:50 Follow up: IV Status: Completed infusion; IV Intake: 50ml tr5 22:59 Drug: fentaNYL (PF) 25 mcg {Note: RASS:0.} Route: IVP; Site: right antecubital; tr5 23:50 Follow up: Response: Pain is decreased; RASS: Alert and Calm (0) tr5 02/07 01:01 Drug: fentaNYL (PF) 25 mcg {Note: RASS:0.} Route: IVP; Site: right antecubital; tr5 02:01 Follow up: Response: Pain is decreased; RASS: Alert and Calm (0) tr5 Disposition: 02/06/19 22:32 Transfer ordered to [facility]. Diagnosis are Abdominal tenderness, Unspecified cirrhosis of liver, Anemia, unspecified, Coagulation defect, unspecified - on eliquis, Unspecified kidney failure, Human immunodeficiency virus [HIV] disease. - Reason for transfer: Higher level of care. - Accepting physician is to [facility]. - Condition is Fair. - Problem is new. - Symptoms have improved. Signatures: Dispatcher [employer] [facility] Immanuel Sy MD MD cha Rodriguez, Tommie, RN RN tr5 Corrections: (The following items were deleted from the chart) 02/06 20:56 19:57 Abdomen Pelvis W Con+CT.RAD.BRZ ordered. [facility] 22:29 21:25 Hospitalization Ordered by Paul Rocha for Inpatient Admission. Preliminary ana diagnosis is Ascites - tense; Unspecified kidney failure; Anemia, unspecified; Coagulation defect, unspecified - eliquis; Unspecified cirrhosis of liver. Bed requested for Telemetry/MedSurg (Inpatient). Status is Inpatient Admission. Condition is Fair. Problem is new. Symptoms have improved. UTI on Admission? No. ana 02/07 00:25 02/06 22:32 02/06/2019 22:32 Transfer ordered to [facility]. Diagnosis is Abdominal ana tenderness; Unspecified cirrhosis of liver; Anemia, unspecified; Coagulation defect, unspecified - on eliquis; Unspecified kidney failure. Reason for transfer: Higher level of care. Accepting physician is to [facility]. Condition is Fair. Problem is new. Symptoms have improved. ana 02/07 02:04 00:25 02/06/2019 22:32 Transfer ordered to [facility]. Diagnosis is Abdominal tr5 tenderness; Unspecified cirrhosis of liver; Anemia, unspecified; Coagulation defect, unspecified - on eliquis; Unspecified kidney failure; Human immunodeficiency virus [HIV] disease. Reason for transfer: Higher level of care. Accepting physician is to [facility]. Condition is Fair. Problem is new. Symptoms have improved. ana
[2019-02-06 22:52] LABS: Blood Morphology Comment NOTED (NOT SEEN); Burr Cells 2+; Macrocytosis 3+; Platelet Estimate ADEQ; Polychromasia 2+; Target Cells 1+; Urine White Blood Cell Casts OK
[2019-02-06] MEDS ORDERED: CEFTRIAXONE/SWI 1gm 1 GM/10 ML SYR ONE (22:56)
--- NOTE | 2019-02-07 08:17 | EKG ---
Test Date: 2019-02-06 Test Time: 21:32:25 Letterpress Setter: TR MEASUREMENT RESULTS: Intervals: Rate: 79 GA: 154 QRSD: 84 QT: 412 QTc: 472 [place]: P: 82 GA: 154 QRS: 94 T: 83 INTERPRETIVE STATEMENTS: Normal sinus rhythm Rightward axis Possible Anterior infarct, age undetermined Abnormal ECG Compared to ECG 04/07/2017 10:00:21 Right-axis deviation now present Myocardial infarct finding now present Sinus bradycardia no longer present Left ventricular hypertrophy no longer present Electronically Signed On 02-07-19 08:15:52 ENTRY LEVEL MACHINE OPERATOR by Daniel Ocampo
--- NOTE | 2019-02-07 10:44 | RAD REPORT ---
EXAM DESCRIPTION: CT - Abdomen Pelvis Wo Contrast - 02/07/2019 4:48 am CLINICAL HISTORY: Abdominal pain. TECHNIQUE: CT scan of the abdomen and pelvis was performed without intravenous contrast. 5 mm axial images were obtained along with coronal and sagittal reformatted images. DOSE OPTIMIZATION: This facility uses dose optimization techniques as appropriate to perform exams, including at least one of the following techniques: 1. Automated exposure control. 2. Adjustment of the mA and/or kV according to patient size (this includes techniques or standardized protocols for targeted exams where dose is matched to the indication/reason for exam, i.e. extremiti es or head). 3. Use of iterative reconstructive technique. INTRAVENOUS CONTRAST: None. COMPARISON: None. FINDINGS: Lung Bases: There is mild right basilar atelectasis. Liver: There is evidence of hepatic cirrhosis. There are multiple low-density masses within the liver. Metastatic disease should be considered. Spleen: Normal. Pancreas: Normal. Gallbladder: There is evidence of cholelithiasis. Adrenal Glands: Normal. Kidneys: There is a non-obstructing medullary stone lower pole measuring 0.2 x 0.2 cm. Retroperitoneal Structures: There is moderately severe atherosclerotic disease about the abdominal ao rta and iliofemoral arteries. Bowel Survey: There is increased stool within the ascending and transverse colon. The bowel loops are displaced centrally due to the large amount of peritoneal ascites. Prostate Gland: Normal in size. Urinary Bladder: Normal. Peritoneal Cavity: There is a large amount of peritoneal ascites. Mesenteric Structures: Normal. Abdominal Wall: No hernia. Bony Structures: No suspicious lesions. IMPRESSION: 1. Hepatic cirrhosis with multiple low-density lesions suspicious for metastatic disease . 2. Large amount of peritoneal ascites. 3. Cholelithiasis. 4. Increased stool within the ascending and transverse colon. 5. Right nephrolithiasis. Electronically signed by: Marciano Payton MD 02/06/2019 9:46 PM FOUNDATION ENGINEER Due to temporary technical issues with the PACS/Fluency reporting system, reports are being signed by the in house radiologist as a courtesy to ensure prompt reporting. The interpreting radiologist is f ully responsible for the content of the report.
[2019-02-07 10:57] VITALS: TEMP 97.7
[2019-02-07 11:02] VITALS: BP 105/73; O2SAT 99
== END 2019-02-07 02:04 | disposition short-term general hospital (02) ==
LOC: ER 19:03
DX: K74.60 Unspecified cirrhosis of liver (principal); D63.1 Anemia in chronic kidney disease; D68.9 Coagulation defect, unspecified; I12.9 Hypertensive chronic kidney disease with stage 1 through stage 4 chronic kidney disease, or unspecified chronic kidney disease; N18.9 Chronic kidney disease, unspecified; Z21 Asymptomatic human immunodeficiency virus [HIV] infection status; Z85.6 Personal history of leukemia
CPT/HCPCS: 36415; 71045; 74176; 80048; 80076; 82140; 83690; 83735; 83880; 84484; 85025; 85610; 86850; 86900; 86901; 93005; 96365; 96375; 99285; C9113; J0696; J2405; J3010